=== PATIENT | male | born 1995 | race Caucasian/White ===

== ENCOUNTER 2018-07-27 13:28 | Emergency (ER) | payer SELFPAY ==
[2018-07-27] MEDS ORDERED: METOCLOPRAMIDE HCL ORAL SOLN 10 MG/10 ML UDCUP PO ONE (13:45)
[2018-07-27] MEDS ORDERED: MAG HYDROX/AL HYDROX/SIMETH SUSP 30 ML UDCUP PO ONE (13:45)
[2018-07-27] MEDS ORDERED: LIDOCAINE 2% VISCOUS SOLN 20 ML UDCUP PO ONE (13:45)
--- NOTE | 2018-07-27 13:46 | ER Document Report ---
ED Medical Screen (RME) - General Chief Complaint: Chest Pain Stated Complaint: CHEST PAINS Time Seen by Provider: 07/27/18 13:39 Primary Care Provider: KASEY MUNSON MD [Primary Care Provider] - Follow up as needed Mode of Arrival: Ambulatory Information source: Patient Notes: Patient is an otherwise healthy 22-year-old male presenting to the emergency department with 3-week history of intermittent chest pain. Patient reports the pain is worse after he eats and feels like a burning usually in the center of his chest but over the last few days it has moved from the right side of his chest and left side of his chest. He denies any radiation to his jaw, neck or arms. He reports some nausea in the evenings after he eats. He does have a history of GERD as a child but has not taken medications in many years. Exam: Lung sounds clear and equal bilaterally. No reproducible chest pain with palpation to the chest wall. I have greeted and performed a rapid initial assessment of this patient. A comprehensive ED assessment and evaluation of the patient, analysis of test results and completion of the medical decision making process will be conducted by additional ED providers. Dictation of this chart was performed using voice recognition software; therefore, there may be some unintended grammatical errors. TRAVEL OUTSIDE OF THE [place] IN LAST 30 DAYS: No - Related Data Allergies/Adverse Reactions: No Known Allergies Allergy (Unverified 03/25/12 17:33) Past Medical History - Immunizations Immunizations up to date: Yes Hx Diphtheria, Pertussis, Tetanus Vaccination: Yes Physical Exam - Vital signs Vitals: Temp Pulse Resp BP Pulse Ox 98.4 F 72 16 133/70 H 98 07/27/18 13:32 07/27/18 13:32 07/27/18 13:32 07/27/18 13:32 07/27/18 13:32 Course - Vital Signs Vital signs: Temp Pulse Resp BP Pulse Ox 98.4 F 72 16 133/70 H 98 07/27/18 13:32 07/27/18 13:32 07/27/18 13:32 07/27/18 13:32 07/27/18 13:32 Doctor's Discharge - Discharge Referrals: KASEY MUNSON MD [Primary Care Provider] - Follow up as needed
--- NOTE | 2018-07-27 15:02 | RADIOLOGY REPORT (SQ) ---
EXAM DESCRIPTION: CHEST 2 VIEWS COMPLETED DATE/TIME: 07/27/2018 2:52 pm REASON FOR STUDY: chest pain COMPARISON: None. EXAM PARAMETERS: NUMBER OF VIEWS: two views TECHNIQUE: Digital Frontal and Lateral radiographic views of the chest acquired. RADIATION DOSE: NA LIMITATIONS: none FINDINGS: LUNGS AND PLEURA: No opacities, masses or pneumothorax. No pleural effusion. MEDIASTINUM AND HILAR STRUCTURES: No masses or contour abnormalities. HEART AND VASCULAR STRUCTURES: Heart normal size. No evidence for failure. BONES: No acute findings. HARDWARE: None in the chest. OTHER: No other significant finding. IMPRESSION: NO ACUTE RADIOGRAPHIC FINDING IN THE CHEST. TECHNICAL DOCUMENTATION: JOB ID: [id number] [employer]- All Rights Reserved Reading location - IP/workstation name: [email or web address]
--- NOTE | 2018-07-27 16:03 | ER Document Report ---
ED General - General Chief Complaint: Chest Pain Stated Complaint: CHEST PAINS Time Seen by Provider: 07/27/18 13:39 Primary Care Provider: KASEY MUNSON MD [ACTIVE STAFF] - Follow up as needed Mode of Arrival: Ambulatory Information source: Patient Notes: Patient is a 22-year-old male comes emergency room complaining of chest pain and abdominal pain. Patient states that he feels like first thing in the morning when he wakes up he cannot catch his breath. This is been going on for approximately 3 weeks and is progressively gotten worse over the course of time. Also states when he eats a heavy meal and feels like he cannot get it down and wants to come back up. He then has intermittent chest pain that starts in the mid area of his chest and radiates originally to the right and for the first week and then has gone to the left for the last 2 weeks. He also states he has some pain down the left arm as well. Patient states he stopped smoking approximately 2 months ago denies any alcohol abuse or any narcotic use. 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 He denies any family history of heart problems but there is a family history of diabetes, hypertension. He states he is tried some Tums and Tylenol without any relief. Patient also states that he has a history of reflux as a child but has not had any problems in the past several years and is not taking any medications. TRAVEL OUTSIDE OF THE [place] IN LAST 30 DAYS: No - HPI Onset: Other - 3 weeks Onset/Duration: Gradual, Waxing and waning Quality of pain: Pressure, Sharp, Stabbing, Throbbing Severity: Moderate Pain Level: 3 Associated symptoms: Nausea, Shortness of breath Exacerbated by: Denies Relieved by: Denies Similar symptoms previously: Yes Recently seen / treated by doctor: No - Related Data Allergies/Adverse Reactions: No Known Allergies Allergy (Unverified 03/25/12 17:33) Past Medical History - General Information source: Patient - Social History Smoking Status: Former Smoker Cigarette use (# per day): No Chew tobacco use (# tins/day): No Smoking Education Provided: No Frequency of alcohol use: Social Drug Abuse: None Lives with: Family Family History: None, Reviewed & Not Pertinent Patient has suicidal ideation: No Patient has homicidal ideation: No - Medical History Medical History: Negative - Past Medical History Cardiac Medical History: Reports: None Pulmonary Medical History: Reports: None Renal/ Medical History: Denies: Hx Peritoneal Dialysis GI Medical History: Reports: Hx Gastroesophageal Reflux Disease - child - Immunizations Immunizations up to date: Yes Hx Diphtheria, Pertussis, Tetanus Vaccination: Yes Review of Systems - Review of Systems Constitutional: No symptoms reported EENT: No symptoms reported Cardiovascular: See HPI, Chest pain, Orthopnea Respiratory: No symptoms reported Gastrointestinal: See HPI, Abdominal pain Genitourinary: No symptoms reported Male Genitourinary: No symptoms reported Musculoskeletal: No symptoms reported Skin: No symptoms reported Hematologic/Lymphatic: No symptoms reported Neurological/Psychological: No symptoms reported -: Yes All other systems reviewed and negative Physical Exam - Vital signs Vitals: Temp Pulse Resp BP Pulse Ox 98.4 F 72 16 133/70 H 98 07/27/18 13:32 07/27/18 13:32 07/27/18 13:32 07/27/18 13:32 07/27/18 13:32 Interpretation: Hypertensive - Notes Notes: PHYSICAL EXAMINATION: GENERAL: Well-appearing, well-nourished and in no acute distress. HEAD: Atraumatic, normocephalic. EYES: Pupils equal round and reactive to light, extraocular movements intact, sclera anicteric, conjunctiva are normal. ENT: Nares patent, oropharynx clear without exudates. Moist mucous membranes. NECK: Normal range of motion, supple without lymphadenopathy LUNGS: Breath sounds clear to auscultation bilaterally and equal. No wheezes rales or rhonchi. There is no reproducible anterior chest discomfort or pain to palpation or resistance moves. HEART: Regular rate and rhythm without murmurs ABDOMEN: Soft, nondistended abdomen. No guarding, no rebound. No masses appreciated. Patient does display some mild midepigastric tenderness to palpation. Musculoskeletal: Normal range of motion, no pitting or edema. No cyanosis. NEUROLOGICAL Normal speech, normal gait. Normal sensory, motor exams PSYCH: Normal mood, normal affect. SKIN: Warm, Dry, normal turgor, no rashes or lesions noted. Course - Re-evaluation Re-evalutation: 07/27/18 17:33 Patient's work-up came back negative for cardiac involvement as far as EKG was normal chest x-ray look good and his lab work was all normal. Given his had a history of reflux as a youngster and he is presenting with the same type of symptomatology I feel safe to discharge him home with some Carafate and some omeprazole. I have discussed it with the patient and his and they are in agreement. Of also informed him that he can always return if the pain gets worse. But with no family history patient does not drink or do drugs or smoke I would feel relatively safe for him to go home. We will be placing him on Carafate 1 g before meals at bedtime, omeprazole 40 mg p.o. daily and I have informed him that he may take some ranitidine if it flares up while he is at work. - Vital Signs Vital signs: Temp Pulse Resp BP Pulse Ox 98.4 F 72 16 133/70 H 98 07/27/18 13:32 07/27/18 13:32 07/27/18 13:32 07/27/18 13:32 07/27/18 13:32 - Laboratory Result Diagrams: 07/27/18 16:00 07/27/18 16:00 Discharge - Discharge Clinical Impression: Reflux esophagitis Condition: Stable Disposition: HOME, SELF-CARE Additional Instructions: As we discussed I am writing up her prescriptions that you can get at the pharmacy or if want to use the [facility] evonne of the Carafate request to $35 at [facility]. Displaces up on your phone and presented at [facility]. The omeprazole you can get [id number] comes 20 mg/tab. he can double that for the first month take 40 mg each morning 30 minutes before breakfast. Also if you start to have a flareup carry some Zantac/ranitidine [id number] it comes in generic version at [facility] for several pills for $7 take 2 at a time of the 150 mg tablets and only once a day. These all work on different areas of helping that relief of the acid in your stomach. The confirmatory test for this would be an upper endoscopy where they go down your throat and look at your stomach highly recommend that you get established with the [facility] as a clinic to establish his medical care according to your status if you have no job is free from my understanding if you work in the notes a sliding scale and a minimal amount this will you can get established and if you need interventions in the sometimes can work that out. Should you have any concerns at all return to ER for recheck. Prescriptions: Omeprazole 40 mg PO DAILY #60 tablet. Sucralfate [Carafate 1 gm Tablet] 1 gm PO ACHS #120 tablet Referrals: KASEY MUNSON MD [ACTIVE STAFF] - Follow up as needed
[2018-07-27 16:31] LABS: ABSOLUTE EOSINOPHILS # (AUTO) 0.1 10^3/uL (0.0-0.6); ABSOLUTE LYMPHOCYTES (AUTO) 1.6 10^3/uL (0.5-4.7); ABSOLUTE MONOCYTES (AUTO) 0.3 10^3/uL (0.1-1.4); ABSOLUTE NEUT (AUTO) 3.5 10^3/uL (1.7-8.2); BASOPHILS % (AUTO) 0.4 % (0-2); HEMATOCRIT 43.1 % (37.9-51.0); HEMOGLOBIN 14.6 g/dL (13.5-17.0); LYMPHOCYTES % (AUTO) 29.4 % (13-45); MEAN CORPUSCULAR HEMOGLOBIN 29.3 pg (27.0-33.4); MEAN CORPUSCULAR HGB CONC 33.8 g/dL (32.0-36.0); MEAN CORPUSCULAR VOLUME 87 fl (80-97); MONOCYTES % (AUTO) 5.6 % (3-13); PLATELET COUNT 223 10^3/uL (150-450); RED BLOOD COUNT 4.97 10^6/uL (4.35-5.55); RED CELL DISTRIBUTION WIDTH 13.1 % (11.5-14.0); SEGMENTED NEUTROPHILS % (AUTO) 62.6 % (42-78); TOTAL CELLS COUNTED % (AUTO) 100 %; WHITE BLOOD COUNT 5.5 10^3/uL (4.0-10.5)
[2018-07-27 16:55] LABS: ALANINE AMINOTRANSFERASE 44 U/L (21-72); ALBUMIN 4.8 g/dL (3.5-5.0); ALKALINE PHOSPHATASE 50 U/L (38-126); ANION GAP 12 (5-19); ASPARTATE AMINO TRANSFERASE 25 U/L (17-59); BILIRUBIN,DIRECT 0.2 mg/dL (0.0-0.4); BILIRUBIN,TOTAL 0.4 mg/dL (0.2-1.3); BLOOD UREA NITROGEN 13 mg/dL (7-20); CALCIUM 9.9 mg/dL (8.4-10.2); CARBON DIOXIDE 28 mmol/L (22-30); CHLORIDE 103 mmol/L (98-107); CREATINE KINASE 106 U/L (55-170); GLUCOSE 86 mg/dL (75-110); LIPASE 74.5 U/L (23-300); POTASSIUM 4.5 mmol/L (3.6-5.0); SODIUM 142.7 mmol/L (137-145); TOTAL PROTEIN 7.8 g/dL (6.3-8.2)
[2018-07-27 17:05] LABS: CREATINE KINASE MB < 0.22 ng/mL (<4.55); TROPONIN I < 0.012 ng/mL
[2018-07-27] MEDS ORDERED: PANTOPRAZOLE SODIUM 40 MG VIAL IV ONE (17:25)
[2018-07-27 17:50] VITALS: BP 127/74
--- NOTE | 2018-07-27 23:27 | EKG REPORT ---
SEVERITY:- NORMAL ECG - SINUS RHYTHM : Confirmed by: Estela Wright MD 27-Jul-2018 23:26:49
--- NOTE | 2018-07-30 07:35 | EKG REPORT ---
SEVERITY:- ABNORMAL ECG - SINUS TACHYCARDIA NONSPECIFIC ST-T CHANGES ANTERIOR LEADS : Confirmed by: Jr lCifford MD 30-Jul-2018 07:33:54
== END 2018-07-27 17:50 | disposition home or self-care (01) ==
LOC: ER 13:28
DX: K21.0 Gastro-esophageal reflux disease with esophagitis (principal); R07.9 Chest pain, unspecified; R11.0 Nausea; R06.02 Shortness of breath; Z87.891 Personal history of nicotine dependence
CPT/HCPCS: 93005; 99284; 36415; 82553; 82550; 83690; 85025; 80053; 84484; 71046; 93010; J3490